=== PATIENT | male | born 2000 | race Caucasian/White ===

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

== ENCOUNTER 2020-03-09 09:56 | Emergency (ER) | payer OTHER ==
[2020-03-09] MEDS ORDERED: Ketorolac Tromethamine 30 MG/ML VIAL ONE ×2 (10:13→11:46)
[2020-03-09] MEDS ORDERED: Ondansetron PF 4 MG/2 ML Vial ONE ×2 (10:13→11:46)
[2020-03-09 10:26] LABS: Bilirubin Negative (Negative); Blood, Urine Large (Negative); Glucose, Urine (Dipstick) Negative (Negative); Ketone, Urine Negative (Negative); Leukocyte Negative (Negative); Nitrite Negative (Negative); Protein, Urine (Dipstick) Negative (Neg-Trace); Urobilinogen 0.2 mg/dL (Less than 2); pH, Urine 6.5 (5.0-9.0)
[2020-03-09 10:27] LABS: Bacteria/HPF None Seen HPF (None Seen); RBC/HPF Greater than 50 HPF (0-3); Squamous Epithelial None Seen HPF (0-3)
[2020-03-09 10:28] LABS: Clarity Hazy (Clear)
[2020-03-09] MEDS ORDERED: Morphine 4 MG/ML VIAL ONE ×2 (10:36→11:14)
[2020-03-09 10:39] LABS: #Basophils 0.1 thou/uL (0.0-0.2); #Eosinphils 0.2 thou/uL (0.0-0.7); #Monocytes 0.7 thou/uL (0.11-0.59); #Neutrophils 4.7 thou/uL (1.40-6.50); %Basophils 1.5 % (0.0-1.0); %Eosinophils 2.2 % (0.0-10.0); %Lymphocytes 41.4 % (28.0-48.0); %Monocytes 7.2 % (0.0-4.0); %Neutrophils 47.9 % (31.0-61.0); Hemoglobin 15.9 g/dL (14.0-18.0); Mean Corpuscular HGB CONC 32.5 g/dL (32.0-36.0); Mean Corpuscular Hemoglobin 28.5 pg (25.0-35.0); Mean Corpuscular Volume 87.6 fL (78.0-98.0); Mean Platelet Volume 8.1 fL (7.4-10.4); Platelet Count 241 thou/uL (130-400); White Blood Cell (WBC) Count 9.7 thou/uL (4.8-10.8)
[2020-03-09 10:52] LABS: ALT (SGPT) 43 U/L (8-55); AST (SGOT) 19 U/L (10-45); Albumin 4.3 g/dL (3.5-5.0); Alkaline Phosphatase 61 U/L (50-130); Anion Gap 15 mmol/L (10-20); BUN (Urea Nitrogen) 14 mg/dL (8.4-21.0); Bilirubin, Total 0.5 mg/dL (0.2-1.2); Calc. Creatinine Clearance 0 mL/min (70-130); Calcium 9.2 mg/dL (7.8-10.44); Carbon Dioxide 26 mmol/L (22-29); Chloride 105 mmol/L (98-107); Estimated GFR-MDRD 68; Glucose 119 mg/dL (70-105); Potassium 3.7 mmol/L (3.5-5.1); Protein, Total 7.3 g/dL (6.0-8.3); Sodium 142 mmol/L (136-145)
--- NOTE | 2020-03-09 11:12 | CT ---
CT ABDOMEN AND PELVIS WITHOUT CONTRAST: DATE: 03/09/2020. PROVIDED CLINICAL HISTORY: Left lower quadrant pain. FINDINGS: No comparisons. The visualized lung bases are free of significant opacity. There are multiple tiny bilateral renal calculi. There is left-sided hydronephrosis and hydroureter to a mild degree. There is a 1-2 mm distal left ureteral calculus. No additional urinary tract calc best are evident. The solid abdominal organs are suboptimally evaluated in the absence of IV contrast but appear otherw ise unremarkable. There is no bowel dilatation, inflammatory fat stranding, free fluid, or free air apparent. The appe ndix appears normal. IMPRESSION: 1. A 1-2 mm mildly obstructing distal left ureteral calculus. 2. Bilateral nephrolithiasis. POS: [facility]
== END 2020-03-09 13:26 | disposition home or self-care (01) ==
LOC: ERS 09:56
DX: N13.2 Hydronephrosis with renal and ureteral calculous obstruction (principal)
CPT/HCPCS: 74176; 80053; 81003; 81015; 85025; 96361; 96374; 96375; 96376; J1885; J2270; J2405

== ENCOUNTER 2020-03-11 10:37 | Emergency (ER) | payer OTHER ==
[2020-03-11] MEDS ORDERED: Ondansetron PF 4 MG/2 ML Vial ONE (10:57)
[2020-03-11] MEDS ORDERED: Ketorolac Tromethamine 30 MG/ML VIAL ONE (10:57)
[2020-03-11 11:27] LABS: Bilirubin Negative (Negative); Blood, Urine Negative (Negative); Clarity Turbid (Clear); Glucose, Urine (Dipstick) Normal (Negative); Ketone, Urine 10 mg/dL (Negative); Leukocyte Negative Leu/uL (Negative); Nitrite Negative (Negative); Protein, Urine (Dipstick) 20 mg/dL (Neg-Trace); Specific Gravity, Urine 1.023 (1.002-1.036)
[2020-03-11 11:30] LABS: #Eosinphils 0.1 thou/uL (0.0-0.7); #Lymphocytes 0.9 thou/uL (1.20-3.40); #Monocytes 1.3 thou/uL (0.11-0.59); #Neutrophils 13.4 thou/uL (1.40-6.50); %Basophils 0.3 % (0.0-1.0); %Eosinophils 0.4 % (0.0-10.0); %Monocytes 8.2 % (0.0-4.0); %Neutrophils 85.1 % (31.0-61.0); Mean Corpuscular HGB CONC 34.9 g/dL (32.0-36.0); Mean Corpuscular Hemoglobin 30.6 pg (25.0-35.0); Mean Corpuscular Volume 87.7 fL (78.0-98.0); Mean Platelet Volume 8.1 fL (7.4-10.4); Platelet Count 189 thou/uL (130-400); RBC Distribution Width 11.9 % (11.5-14.5); Red Blood Cell (RBC) Count 4.89 mill/uL (4.00-5.20); White Blood Cell (WBC) Count 15.7 thou/uL (4.8-10.8)
[2020-03-11 11:51] LABS: ALT (SGPT) 56 U/L (8-55); AST (SGOT) 32 U/L (10-45); Albumin 3.9 g/dL (3.5-5.0); Alkaline Phosphatase 62 U/L (50-130); Anion Gap 11 mmol/L (10-20); BUN (Urea Nitrogen) 13 mg/dL (8.4-21.0); Bilirubin, Total 1.2 mg/dL (0.2-1.2); Calc. Creatinine Clearance 0 mL/min (70-130); Calcium 9.2 mg/dL (7.8-10.44); Carbon Dioxide 28 mmol/L (22-29); Chloride 102 mmol/L (98-107); Estimated GFR-MDRD 54; Globulin 3.3 g/dL (2.4-3.5); Glucose 103 mg/dL (70-105); Potassium 3.9 mmol/L (3.5-5.1); Protein, Total 7.2 g/dL (6.0-8.3); Sodium 137 mmol/L (136-145)
--- NOTE | 2020-03-11 14:28 | ULT ---
RENAL ULTRASOUND: History: Left flank pain. FINDINGS: Real-time imaging of the right and left kidneys were performed. The right kidney measures 12 cm in le ngth. The left kidney is 13.1 cm. There is no any dilatation to either collecting system. The hydrone phrosis that was noted on the previous CT of 03-09-2020 has resolved. The bladder is almost empty at th e time of this exam. IMPRESSION: Resolution of left sided hydronephrosis as compared to the 03-09-2020 CT study. POS: [facility]
== END 2020-03-11 14:00 | disposition home or self-care (01) ==
LOC: ERS 10:37
DX: N20.0 Calculus of kidney (principal); D72.829 Elevated white blood cell count, unspecified
CPT/HCPCS: 76770; 80053; 81003; 83605; 85025; J1885; J2405